=== PATIENT | male | born 1975 | race Caucasian/White ===

== ENCOUNTER → 2020-01-14 | Day surgery (SDC) | payer OTHER ==
[~2020-01-14] MED LIST: ACETAMINOPHEN/CODEINE 300MG - 30MG TAB ONE; BUPIVACAINE HCL 0.5% INJ 30 ML VIAL INJ ONE; CEFAZOLIN SOD 1 GM/NS 50ML 50 ML IV ONE; DEXAMETHASONE SOD PHOS INJ 4 MG/ML VIAL ONE; FENTANYL CITRATE/PF 100MCG/2 ML INJ ONE; KETOROLAC TROMETHAMINE 30 MG/ML VIAL ONE; LIDOCAINE HCL 2% LOCAL INJ 5 ML SDV VIAL INJ ONE; MIDAZOLAM HCL 2 MG/2 ML VIAL ONE; ONDANSETRON HCL INJ 2MG/ML 2ML 2 MG/ML VIAL ONE; PROPOFOL IV EMULSION 10 MG/ML 20 ML VIAL ONE; SEVOFLURANE INHAL SOLN 250 ML PEN BTL ONE
--- OUTSIDE RECORDS SUMMARY | 2020-01-14 06:18 | XMS REPORT ---
Author Author [facility] Organization [facility] Address Unknown Phone Unavailable Care Team Providers Care Transportation Superintendent Name Role Phone Unavailable Unavailable Problems This patient has no known problems. Allergies, Adverse Reactions, Alerts This patient has no known allergies or adverse reactions. Medications This patient has no known medications.
[2020-01-14 10:55] VITALS: BP 117/86
--- NOTE | 2020-01-17 11:44 | Operative Report ---
DATE OF PROCEDURE: 01/14/2020 SURGEON: Nishant Powers MD PREOPERATIVE DIAGNOSES: Right spermatocele, left hydrocele. POSTOPERATIVE DIAGNOSES: Right spermatocele, left hydrocele. PROCEDURES: 1. Excision of right spermatocele. 2. Left hydrocele repair. ANESTHESIA: General. ESTIMATED BLOOD LOSS: Minimal. COMPLICATIONS: None. INDICATIONS FOR PROCEDURE: Mr. Lamas is a 44-year-old male with a very large approximately 6 x 6 cm right spermatocele. Final ultrasound also have a left hydrocele. He and I had a long discussion about alternatives, risks, and benefits of doing nothing, excision drainage. He voiced understanding of the options, alternatives, risks, and benefits. He elected to proceed with excision of spermatocele and the left hydrocele. The portion of the options, alternatives, risks, and benefits including, but not limited to pain, bleeding, infection, reoperation, damage to adjacent structures, atrophy, loss of the testicle, recurrence of anatomic abnormalities. He elected to proceed. PROCEDURE IN DETAIL: After informed consent was obtained, the patient was taken to the operative suite, placed supine on the operating table, underwent general anesthesia by the Anesthesia Service. He was placed in supine position. Sterilely prepped and draped in standard fashion for scrotal surgery. A midline raphe incision was made in the subcutaneous tissues. The right testicle was delivered extra vaginally. Tunica vaginalis was sharply incised, very large spermatocele was seen, winding its way underneath the epididymis. The sac was dissected free. Utilizing combination of electrocautery, blunt and sharp dissection at the cessation this neck was seen, however, was directly in the hilum of the testicle which was oversewn as best possible the pursestring, however, could not kind of turn neck to tie ligate. Meticulous hemostasis was obtained. The testicle was placed back in its normal anatomic position. Attention was then turned towards the left testicle, which was delivered extra vaginally, tunica vaginalis was sharply excised, return back itself and sewn in a bottleneck fashion. This was then placed in normal anatomic position. The wound was irrigated. The cremasters were closed with a running chromic gut stitch. The skin was then closed with a running chromic gut stitch. The patient was awakened from anesthesia and transported to recovery room with all sponge and instrument counts were correct x2. MD RUSS Watkins/ADRIANA /[id number]
== END | disposition home or self-care (01) ==
LOC: OR 06:14
PROVIDERS: ATTEND Urology
DX: N43.40 Spermatocele of epididymis, unspecified (principal); N43.3 Hydrocele, unspecified; N39.0 Urinary tract infection, site not specified; G89.29 Other chronic pain; I10 Essential (primary) hypertension; Z01.810 Encounter for preprocedural cardiovascular examination; Z01.812 Encounter for preprocedural laboratory examination; Z11.59 Encounter for screening for other viral diseases; Z68.33 Body mass index [BMI] 33.0-33.9, adult
CPT/HCPCS: 87635; 88304; 93005; J0690; J1100; J1885; J2001; J2250; J2405; J3010